=== PATIENT | female | born 1960 | race Caucasian/White ===

== ENCOUNTER → 2017-02-04 | Outpatient (CLI) | payer OTHER ==
--- NOTE | 2017-02-04 14:38 | XR ---
EXAMINATION TYPE: XR cervical spine limited DATE OF EXAM: 02/04/2017 COMPARISON: NONE HISTORY: Right-sided numbness TECHNIQUE: Four views are submitted. FINDINGS: The odontoid is intact. Assessment of the lateral mass on the left limited due to obscuration. There are no compression deformities. The prevertebral soft tissue structures are within normal limits. P ostsurgical change involving the mid and lower cervical spine appears in near anatomic alignment. Fac et arthropathy at levels C3-C7. IMPRESSION: 1. Postsurgical change with multilevel facet arthropathy. Consider follow-up MRI.
== END | disposition home or self-care (01) ==
LOC: RADXRMAIN 14:13
PROVIDERS: ATTEND Internal Medicine
DX: M46.92 Unspecified inflammatory spondylopathy, cervical region (principal); M79.601 Pain in right arm; R20.0 Anesthesia of skin; Z98.890 Other specified postprocedural states
CPT/HCPCS: 72040

== ENCOUNTER → 2017-04-17 | Outpatient (CLI) | payer OTHER ==
[2017-04-17 11:35] LABS: Non-African American GFR(MDRD) >60 (>60 ml/min/1.73 sqM)
--- NOTE | 2017-04-19 07:11 | MR ---
MRI CERVICAL SPINE: CLINICAL HISTORY: Neck pain, surgery 6 years ago. Headaches with neck pain causing pain or weakness i n both arms and fingers for 30 years per patient. TECHNIQUE: Multiplanar, multisequence imaging of the cervical spine is performed without and with IV contrast, 6 cc of gadolinium was given intravenously. COMPARISON: MRI cervical spine August 17, 2012. Cervical spine x-ray February 04, 2017. FINDINGS: Sagittal images of the cervical spine show the craniocervical junction to appear within nor mal limits. The cervical and upper thoracic spinal cord is normal in caliber and signal. There is lo ss of normal cervical curvature redemonstrated. There is persistent grade 1 retrolisthesis of C4 on C 5. There is artifact from anterior fusion material C4-C7 levels redemonstrated. The vertebral body an d intravertebral disk heights are normal above and below surgical levels. Multilevel disc desiccation is redemonstrated. The bone marrow signal intensity is within normal limits. No suspicious postcont rast enhancement is seen. Axial images show the C2-C3 level to remain within normal limits. Axial images at C3-C4 level shows small focal central disc protrusion mildly effacing anterior thecal sac, bilateral neural foramina are patent there are axial image 42, no significant change from prior study is seen. Axial images at C4-C5 level redemonstrate retrolisthesis and broad-based right paracentral disc protr usion or ossific fusion material effacing anterolateral thecal sac and causing mild bilateral neural foraminal narrowing on axial image 35. Axial images at C5-C6 level and C6-C7 level show artifact from fusion hardware. There is arthrodesis with presumed ossific fusion material effacing right anterolateral thecal sac on images 29 and 21 res pectively, bilateral neural foramina remain patent. No significant change from prior study is seen. Axial images at C7-T1 level are felt within normal limits. IMPRESSION: Postsurgical change C4-C7 level redemonstrated with arthrodesis at this level identified. There is arthrodesis or straightening of spine with slight retrolisthesis of C4 redemonstrated. Mult ilevel ossific fusion effaces right anterolateral thecal sac. No significant change from prior MRI st udy is seen.
== END ==
LOC: RADMRIMAIN 10:50
PROVIDERS: ATTEND Internal Medicine
DX: M43.12 Spondylolisthesis, cervical region (principal); Z98.1 Arthrodesis status
CPT/HCPCS: 82565; 72156; A9581

== ENCOUNTER → 2017-07-09 | Outpatient (CLI) | payer OTHER ==
[2017-07-20 09:14] LABS: Mis test requested (Blood) MYASTHENIA GRAVIS 1
== END | disposition home or self-care (01) ==
LOC: LABWHC1 12:09
PROVIDERS: ATTEND Psychiatry & Neurology Neurology
DX: G70.00 Myasthenia gravis without (acute) exacerbation (principal)
CPT/HCPCS: 36415; 82607; 83519; 86255

== ENCOUNTER → 2018-08-12 | Outpatient (CLI) | payer OTHER ==
--- NOTE | 2018-08-16 07:55 | MM ---
Reason for exam: screening (asymptomatic). Last mammogram was performed 4 years and 1 month ago. History: Patient is postmenopausal and history of other cancer. Family history of breast cancer in mother at age 83. Physical Findings: A clinical breast exam by your physician is recommended on an annual basis and results should be correlated with mammographic findings. MG 3D Screening Mammo W/Cad Bilateral CC and MLO view(s) were taken. Prior study comparison: July 06, 2014, left breast MG work up mamm w CAD LT. July 04, 2014, bilateral MG screening mammo w CAD. There are scattered fibroglandular densities. There is chronic nodularity in the left breast centrally now decreased in size. No significant changes when compared with prior studies. ASSESSMENT: Benign, BI-RAD 2 RECOMMENDATION: Routine screening mammogram of both breasts in 1 year.
== END ==
LOC: RADMAMWWP 13:59
PROVIDERS: ATTEND Internal Medicine
DX: Z12.31 Encounter for screening mammogram for malignant neoplasm of breast (principal)
CPT/HCPCS: 77063; 77067

== ENCOUNTER → 2018-10-14 | Outpatient (CLI) | payer OTHER ==
--- NOTE | 2018-10-16 10:47 | MR ---
EXAMINATION TYPE: MR thoracic spine wo con DATE OF EXAM: 10/14/2018 COMPARISON: MRI cervical spine 04/07/2017, MR thoracic spine [birth year]/09/1939 HISTORY: Chronic back pain Standard multiplanar, multisequence MRI departmental protocol Multiplanar, multisequence images of the thoracic spine were acquired. Diffusion weighted imaging was performed. FINDINGS: Previous surgery involving the cervical and lumbar spine are partially included on exam. No abnormal signal seen in the paraspinal soft tissues. There is a pinpoint area of increased signal noted within the spinal cord at the approximate level of is T6-T8 which a prominent central canal is favored over tiny syrinx. At C7-T1 there is degenerative disc disease. No obvious canal stenosis or disc herniation. Neural for felipa appear patent. T1-T2 there is degenerative disc disease minimal disc bulging with no canal stenosis. No foraminal en croachment. At T2-T3 no disc herniation or canal stenosis. No foraminal encroachment. At T3-T4 there is mild posterior cervical spondylosis with a small disc disc protrusion or tiny herni ation paracentrally to left which appears progressed from the prior exam. At T4-T5 there is small focal posterior disc herniation which results in anterior compression thecal sac. There is mild mass effect upon the spinal cord. This is markedly progressed from prior exam.. Ne ural foramina are patent. At T5-T6 there is degenerative disc disease but no disc herniation, canal stenosis or foraminal encro achment. At T6-T7 there is a left paracentral disc bulge no spinal cord contact. No foraminal encroachment T7-T8 there is central disc protrusion slightly greater paracentrally to the right effaces the thecal sac. Encroaches upon the anterior margin of the spinal cord. Degenerative disc disease noted.. Findi ngs mildly progressed. Neural foramina patent. At T8-T9 there is left paracentral disc bulging or small protrusion. No spinal cord contact. Neural f oramina are patent. Degenerative disc disease noted. At T9-T10 is broad-based disc bulging but no canal stenosis or focal herniation. Degenerative disc di sease noted. Neural foramina patent. At T10-T11 there is significant degenerative disc disease with broad-based central disc bulging. Neur al foramina patent. No focal herniation or canal stenosis. T11-T12 there is no definite disc herniation or canal stenosis At T12-L1 there appears be postsurgical change involving the L1 vertebral body which is only partiall y included. Grossly no disc herniation or canal stenosis IMPRESSION: 1. There are multilevel areas of degenerative disc disease with multilevel disc protrusion or small h erniations which are progressed from the prior exam at multiple levels. At T4-T5 there is thecal sac compression and mild mass effect upon the spinal cord which is new from the prior exam.
== END | disposition home or self-care (01) ==
LOC: RADMRIMAIN 17:58
PROVIDERS: ATTEND Psychiatry & Neurology Neurology
DX: M51.24 Other intervertebral disc displacement, thoracic region (principal); M51.34 Other intervertebral disc degeneration, thoracic region; G95.89 Other specified diseases of spinal cord
CPT/HCPCS: 72146

== ENCOUNTER → 2021-06-13 | Outpatient (CLI) | payer OTHER ==
--- NOTE | 2021-06-17 09:42 | MM ---
Reason for exam: screening (asymptomatic). Last mammogram was performed 2 years and 10 months ago. History: Patient is postmenopausal and history of other cancer. Family history of breast cancer in mother at age 83. Physical Findings: A clinical breast exam by your physician is recommended on an annual basis and results should be correlated with mammographic findings. MG 3D Screening Mammo W/Cad Bilateral CC and MLO view(s) were taken. Prior study comparison: August 12, 2018, bilateral MG 3d screening mammo w/cad. July 06, 2014, left breast MG work up mamm w CAD LT. There are scattered fibroglandular densities. There is chronic nodularity in the left breast. No significant changes when compared with prior studies. ASSESSMENT: Benign, BI-RAD 2 RECOMMENDATION: Routine screening mammogram of both breasts in 1 year.
== END | disposition home or self-care (01) ==
LOC: RADMAMWWP 08:59
PROVIDERS: ATTEND Internal Medicine
DX: Z12.31 Encounter for screening mammogram for malignant neoplasm of breast (principal); Z78.0 Asymptomatic menopausal state; Z80.3 Family history of malignant neoplasm of breast
CPT/HCPCS: 77063; 77067

== ENCOUNTER 2022-04-24 07:09 | Day surgery (SDC) | payer OTHER ==
[2022-04-22 12:18] VITALS: BMI 22.8
[~2022-04-24 07:09] MED LIST: LACTATED RINGERS 1,000 ML IV SCH; LIDOCAINE 1% (10MG/ML) FOR IV START INTRADERMA PRN
[2022-04-24 07:51] VITALS: TEMP 98.6
[2022-04-24] MEDS ORDERED: PROPOFOL 10 MG/ML 20 ML VIAL IV ONE (08:34)
--- NOTE | 2022-04-24 08:56 | P.PCN ---
Date of Procedure: 04/24/22 Procedure(s) Performed: BRIEF HISTORY: Patient is a 61-year-old pleasant female scheduled for an elective colonoscopy as a part of evaluation of prior history of colon polyps PROCEDURE PERFORMED: Colonoscopy. PREOPERATIVE DIAGNOSIS: History of colon polyps. IV sedation per Anesthesia. PROCEDURE: After informed consent was obtained, the patient, was brought into the endoscopy unit. IV sedation was administered by Anesthesia under continuous monitoring. Digital rectal examination was normal. Initially the Olympus CF-160 flexible video colonoscope was then inserted in the rectum, gradually advanced into the cecum without any difficulty. Careful examination was performed as the scope was gradually being withdrawn. Ileocecal valve and the appendiceal orifice were visualized and appeared normal. Prep was excellent. Mucosa of the cecum, ascending colon, transverse colon, descending colon, sigmoid colon, and rectum appeared normal. Scattered sigmoid diverticulosis. Retroflexion was performed in the rectum and no lesions were seen. The patient tolerated the procedure well. IMPRESSION: Normal-appearing colon from rectum to cecum with no evidence of colorectal neoplasia. Scattered sigmoid diverticulosis. RECOMMENDATIONS: Findings of this examination were discussed with the patient a s well as her family. She was advised to have a repeat screening colonoscopy in 10 years..
[2022-04-24 09:27] VITALS: BP 174/84; PULSE 71; RESP 20
== END 2022-04-24 09:47 ==
LOC: ORWHC2ENDO 07:09
PROVIDERS: ATTEND Internal Medicine Gastroenterology
DX: Z12.11 Encounter for screening for malignant neoplasm of colon (principal); K57.30 Diverticulosis of large intestine without perforation or abscess without bleeding; F12.90 Cannabis use, unspecified, uncomplicated; M19.90 Unspecified osteoarthritis, unspecified site; G70.00 Myasthenia gravis without (acute) exacerbation; M50.30 Other cervical disc degeneration, unspecified cervical region; M48.00 Spinal stenosis, site unspecified; K75.4 Autoimmune hepatitis; Z79.899 Other long term (current) drug therapy; Z86.010 Personal history of colon polyps; Z91.040 Latex allergy status; Z88.8 Allergy status to other drugs, medicaments and biological substances
CPT/HCPCS: G0105; J2704; 45378